=== PATIENT | female | born 1945 | race Caucasian/White ===

== ENCOUNTER → 2019-10-26 | Outpatient (CLI) | payer MEDICARE ==
[~2019-10-26] MED LIST: ASPI-496 PO; BIOT25005 PO; CALC-192 PO; CHRM1TAB PO; CYAN250013 PO; KRIL1CAP29 PO; MULT1TAB60 PO; NAPR1TAB25 PO; ROSU5TAB PO; Vitamin D3 PO; magnesium PO; turmeric PO
== END | disposition home or self-care (01) ==
LOC: STAR 12:16
PROVIDERS: ATTEND Orthopaedic Surgery
DX: Z01.818 Encounter for other preprocedural examination (principal); S83.241A Other tear of medial meniscus, current injury, right knee, initial encounter; X58.XXXA Exposure to other specified factors, initial encounter; Y93.89 Activity, other specified; Y92.89 Other specified places as the place of occurrence of the external cause; Y99.8 Other external cause status
CPT/HCPCS: 93005